=== PATIENT | male | born 1950 | race Caucasian/White ===

== ENCOUNTER → 2016-08-15 | Outpatient (CLI) | payer OTHER | END | disposition home or self-care (01) | LOC: LAB 15:20 | PROVIDERS: ATTEND Urology | DX: N40.1 Benign prostatic hyperplasia with lower urinary tract symptoms (principal) | CPT/HCPCS: 36415; G0103 ==

== ENCOUNTER → 2016-11-03 | Outpatient (CLI) | payer OTHER ==
[~2016-11-03] MED LIST: ALLO100T PO; CONTRAST GIVEN MC PRN; IOHEXOL 300 MG/ML 100ML VIAL. IV ONE; LISI2.5T PO
--- NOTE | 2016-11-03 12:30 | KCIC ---
PROCEDURE CT of the abdomen and pelvis with and without contrast HISTORY Hematuria. TECHNIQUE Axial images obtained before, during and after intravenous contrast. No oral contrast per request. 3D reconstructions are obtained of the urinary tracts. Exposure: One or more of the following individualized dose reduction techniques were utilized for this exam: 1. Automated exposure control. 2. Adjustment of the mA and/or kV according to patient size. 3. Use of iterative reconstruction technique.. COMPARISON None FINDINGS Lung bases are clear. Mild coronary calcifications. No evidence of urolithiasis. No hydronephrosis or ureter dilatation. Both kidneys demonstrate symmetric nephrograms and symmetric contrast excretion. Examination of solid viscera, vasculature and GI tract may be limited as protocol was dedicated to the urinary tracts. Liver, spleen, pancreas, appear grossly unremarkable. No evidence of adrenal mass. No lesion identified at either kidney. No evidence of calcified gallstone. The aorta is mildly calcified but non aneurysmal. The aorta is mildly tortuous. No significant enlargement of lymph nodes. No evidence of a bowel obstruction. No pericolonic inflammation. The appendix is normal. No evidence of ascites. The urinary bladder is thick walled. There is also irregularity of the urinary bladder wall. There is lumbar spondylosis. There appears to be some spinal and neural foraminal stenosis at the lower lumbosacral levels. IMPRESSION The urinary bladder demonstrates a thick and irregular wall. This is nonspecific. A urinary bladder tumor or malignancy is not excludable. Other considerations include acute or chronic cystitis, or chronic bladder outlet obstruction. Electronically signed by: Juan Francisco Owusu MD (Nov 03, 2016 12:29:02)
== END | disposition home or self-care (01) ==
LOC: KCIC CT 10:13
PROVIDERS: ATTEND Nurse Practitioner Occupational Health
DX: R31.9 Hematuria, unspecified (principal)
CPT/HCPCS: 74178; 82565; Q9967